=== PATIENT | female | born 1990 | race Caucasian/White ===

== ENCOUNTER → 2021-02-24 09:02 | Outpatient (CLI) | payer BC, SELFPAY ==
[2021-02-24 09:56] LABS: Estradiol 348.1 pg/mL; Luteinizing Hormone 6.3 mIU/mL
[2021-02-24 10:18] LABS: Progesterone Level 0.76 ng/mL (See Comment)
== END ==
PROVIDERS: Visit Provider Obstetrics & Gynecology Reproductive Endocrinology
DX: E28.9 Ovarian dysfunction, unspecified (principal)
CPT/HCPCS: 36415; 82670; 83002; 84144

== ENCOUNTER → 2021-02-27 11:18 | Outpatient (CLI) | payer BC, SELFPAY ==
[2021-02-27 12:23] LABS: Progesterone Level 0.81 ng/mL (See Comment)
[2021-02-27 12:29] LABS: Luteinizing Hormone 2.5 mIU/mL
== END ==
PROVIDERS: Visit Provider Obstetrics & Gynecology Reproductive Endocrinology
DX: E28.9 Ovarian dysfunction, unspecified (principal)
CPT/HCPCS: 36415; 82670; 83002; 84144

== ENCOUNTER → 2021-03-17 09:42 | Outpatient (CLI) | payer BC, SELFPAY ==
[2021-03-17 10:34] LABS: hCG Titer Quant., Serum < 1 mIU/mL (1-3)
[2021-03-17 10:36] LABS: Progesterone Level 0.89 ng/mL (See Comment)
[2021-03-17 10:41] LABS: Estradiol 32.2 pg/mL; Follicle Stimulating Hormone 9.3 mIU/mL; Luteinizing Hormone 5.6 mIU/mL; Thyroid Stim Hormone (TSH) 1.94 uIU/mL (0.358-3.74)
== END ==
PROVIDERS: Visit Provider Obstetrics & Gynecology Reproductive Endocrinology
DX: E28.9 Ovarian dysfunction, unspecified (principal)
CPT/HCPCS: 36415; 82670; 83001; 83002; 84144; 84443; 84702

== ENCOUNTER → 2021-03-24 09:21 | Outpatient (CLI) | payer BC, SELFPAY ==
[2021-03-24 10:18] LABS: Progesterone Level 0.38 ng/mL (See Comment)
[2021-03-24 10:19] LABS: Estradiol 441.6 pg/mL; Luteinizing Hormone 2.8 mIU/mL
== END ==
PROVIDERS: Visit Provider Obstetrics & Gynecology Reproductive Endocrinology
DX: E28.9 Ovarian dysfunction, unspecified (principal)
CPT/HCPCS: 36415; 82670; 83002; 84144

== ENCOUNTER → 2021-03-27 11:40 | Outpatient (CLI) | payer BC, SELFPAY ==
[2021-03-27 12:40] LABS: Luteinizing Hormone 1.5 mIU/mL
[2021-03-27 12:45] LABS: Progesterone Level 0.57 ng/mL (See Comment)
== END ==
PROVIDERS: Visit Provider Obstetrics & Gynecology Reproductive Endocrinology
DX: E28.9 Ovarian dysfunction, unspecified (principal)
CPT/HCPCS: 36415; 82670; 83002; 84144

== ENCOUNTER → 2021-05-18 09:47 | Outpatient (CLI) | payer BC, SELFPAY ==
[2021-05-18 10:34] LABS: hCG Titer Quant., Serum < 1 mIU/mL (1-3)
[2021-05-18 10:36] LABS: Progesterone Level 0.87 ng/mL (See Comment)
[2021-05-18 10:38] LABS: Estradiol 38.6 pg/mL; Follicle Stimulating Hormone 12.1 mIU/mL; Luteinizing Hormone 8.5 mIU/mL; Thyroid Stim Hormone (TSH) 1.65 uIU/mL (0.358-3.74)
== END ==
PROVIDERS: Visit Provider Obstetrics & Gynecology Reproductive Endocrinology
DX: E28.9 Ovarian dysfunction, unspecified (principal)
CPT/HCPCS: 36415; 82670; 83001; 83002; 84144; 84443; 84702

== ENCOUNTER → 2021-05-24 08:50 | Outpatient (CLI) | payer BC, SELFPAY ==
[2021-05-24 09:57] LABS: Estradiol 56.7 pg/mL; Luteinizing Hormone 9.6 mIU/mL
== END ==
PROVIDERS: Visit Provider Obstetrics & Gynecology Reproductive Endocrinology
DX: E28.9 Ovarian dysfunction, unspecified (principal)
CPT/HCPCS: 36415; 82670; 83002; 84144

== ENCOUNTER → 2021-05-26 11:42 | Outpatient (CLI) | payer BC, SELFPAY ==
[2021-05-26 13:24] LABS: Estradiol 150.6 pg/mL
[2021-05-26 13:25] LABS: Progesterone Level 0.84 ng/mL (See Comment)
== END ==
PROVIDERS: Visit Provider Obstetrics & Gynecology Reproductive Endocrinology
DX: E28.9 Ovarian dysfunction, unspecified (principal)
CPT/HCPCS: 36415; 82670; 83002; 84144

== ENCOUNTER → 2021-06-20 08:45 | Outpatient (CLI) | payer BC, SELFPAY ==
[2021-06-20 09:36] LABS: Estradiol 291.7 pg/mL; Progesterone Level 20.97 ng/mL (See Comment)
[2021-06-20 09:52] LABS: hCG Titer Quant., Serum 7359 mIU/mL (1-3)
== END ==
PROVIDERS: Visit Provider Obstetrics & Gynecology Reproductive Endocrinology
DX: Z32.01 Encounter for pregnancy test, result positive (principal)
CPT/HCPCS: 36415; 82670; 84144; 84702

== ENCOUNTER → 2021-06-28 09:24 | Outpatient (CLI) | payer BC, SELFPAY ==
[2021-06-28 10:18] LABS: Progesterone Level 31.13 ng/mL (See Comment)
[2021-06-28 10:37] LABS: hCG Titer Quant., Serum 27925 mIU/mL (1-3)
== END ==
PROVIDERS: Referring Provider Obstetrics & Gynecology Reproductive Endocrinology; Visit Provider Obstetrics & Gynecology Reproductive Endocrinology
DX: Z32.01 Encounter for pregnancy test, result positive (principal)
CPT/HCPCS: 36415; 82670; 84144; 84702